=== PATIENT | female | born 1995 | race African-American/Black ===

== ENCOUNTER 2024-04-13 10:10 | Emergency (ER) | payer OTHER ==
[~2024-04-13] VITALS: Ht 165.1 cm; Wt 76.0 kg
[2024-04-13 10:16] VITALS: BP 147/85; RESP 20; TEMP 98.1; O2SAT 98
[2024-04-13 11:10] LABS: BASOPHILS % 0.2 % (0.0-2.0); EOSINOPHILS % 0.2 % (0.0-5.0); HEMATOCRIT. 37.8 % (36.0-48.0); HEMOGLOBIN. 12.7 g/dL (12.0-16.0); LYMPHOCYTES % 10.4 % (20.0-50.0); MEAN CORPUSCULAR HEMOGLOBIN 30.1 pg (28.0-32.0); MEAN CORPUSCULAR HGB CONC 33.6 g/dL (31.0-37.0); MEAN CORPUSCULAR VOLUME 89.7 fL (81.0-99.0); MEAN PLATELET VOLUME 7.1 fl (7.4-10.4); MONOCYTES % 3.8 % (2.0-8.0); NEUTROPHILS % 85.4 % (40.0-76.0); PLATELET 357 x1000/uL (130-400); RED BLOOD CELL COUNT 4.22 mill/uL (4.2-5.4); RED CELL DISTRIBUTION WIDTH 13.3 % (11.6-14.6); WHITE BLOOD COUNT 13.6 x1000/uL (4.5-11.0)
[2024-04-13 11:22] LABS: CHLORIDE 103 mEq/L (98-107); POTASSIUM 3.7 mEq/L (3.5-5.1); SODIUM 136 mEq/L (136-145)
[2024-04-13 11:23] LABS: CALCIUM 9.7 mg/dL (8.7-10.4); CARBON DIOXIDE 26 mEq/L (21-32)
[2024-04-13 11:28] LABS: GLUCOSE 135 mg/dL (70-105); UREA NITROGEN BLOOD 16 mg/dL (9-23)
[2024-04-13 11:30] LABS: ALANINE AMINOTRANSFERASE 20 IU/L (10-49); ASPARTATE AMINOTRANSFERASE 21 IU/L (<34); BILIRUBIN DIRECT 0.1 mg/dL (<=3.0); BILIRUBIN TOTAL 0.4 mg/dL (0.1-1.0); HCG SCREEN NEGATIVE
[2024-04-13 11:31] LABS: PROTEIN TOTAL 7.7 g/dL (6.0-8.3)
[2024-04-13] MEDS ORDERED: ACETAMINOPHEN 325MG TABLET PO ONE (11:45)
[2024-04-13] MEDS ORDERED: IOHEXOL-300 100 ML BOTTLE ONE (14:43)
[2024-04-13 14:56] LABS: CLARITY URINE CLOUDY (CLEAR); COLOR URINE DARK YELLOW (YELLOW); GLUCOSE URINE NEGATIVE (NEGATIVE); KETONES URINE TRACE (NEGATIVE); LEUKOCYTE ESTERASE URINE NEGATIVE (NEGATIVE); NITRITE URINE NEGATIVE (NEGATIVE); OCCULT BLOOD URINE 3+ (NEGATIVE); PH URINE 5.5 (4.5-8.0); PROTEIN URINE 2+ (NEGATIVE); SPECIFIC GRAVITY URINE 1.033 (1.005-1.030)
[2024-04-13 15:06] LABS: BACTERIA URINE 2+; CALCIUM OXALATE CRYSTALS URINE 1+ /lpf; YEAST URINE NONE SEEN
[2024-04-13] MEDS: SODIUM CHLORIDE 0.9% 1,000 ML IV ONE (15:10)
[2024-04-13 15:15] VITALS: PULSE 60
[2024-04-13] MEDS: TAMSULOSIN HCL 0.4MG SR CAPSULE PO ONE (15:15)
[2024-04-13] MEDS: ACETAMINOPHEN 325MG TABLET PO NR (15:15)
[2024-04-13] MEDS: KETOROLAC 15MG/ML VIAL IV ONE (15:22)
[2024-04-13] MEDS ORDERED: CEFP100T8 MT (16:30)
[2024-04-13] MEDS ORDERED: TAMS-11 PO (16:30)
== END 2024-04-13 16:47 | disposition home or self-care (01) ==
LOC: ER 10:37
DX: N20.0 Calculus of kidney (principal); R19.7 Diarrhea, unspecified; R11.2 Nausea with vomiting, unspecified
CPT/HCPCS: 99285; 74177; 96374; 96361; 80076; 80048; 81003; 81025; 84703; 83690; 85025; 36415; Q9967; J1885; J7030